=== PATIENT | female | born 1955 | race Caucasian/White ===

== ENCOUNTER 2019-09-24 11:22 | Emergency (ER) | payer OTHER ==
--- NOTE | 2019-09-24 11:36 | PDOC ---
*Physical Exam - Physical Exam 09/24/19 11:36 The patient was examined by [CAROL Burrows] under my direct supervision. I personally evaluated the patient. I concur with the above findings and the plan of care.
[2019-09-24 11:42] VITALS: BMI 22.4
[2019-09-24] MEDS ORDERED: ACETAMINOPHEN 325 MG TABLET (FP) PO ONE (11:55)
[2019-09-24] MEDS ORDERED: METHOCARBAMOL 500 MG TABLET PO ONE (11:56)
[2019-09-24 12:54] LABS: BASO % 0.3 % (0-2.0); EOS % 0.1 % (0-4.5); HEMOGLOBIN 12.6 GM/dL (10.7-15.3); LYMPH % 11.1 % (8-40); MCH 29.2 pg (25.7-33.7); MCHC 33.9 g/dl (32.0-36.0); MEAN PLT VOLUME 8.4 fl (7.5-11.1); NEUT % 82.5 % (42.8-82.8); PLATELET COUNT 403 K/MM3 (134-434); RBC 4.31 M/mm3 (3.60-5.2); WHITE BLOOD COUNT 12.9 K/mm3 (4.0-10.0)
[2019-09-24 13:06] LABS: INR 1.06 (0.83-1.09); PROTHROMBIN TIME (PATIENT) 12.5 SEC (9.7-13.0)
[2019-09-24 13:09] LABS: ACTIVATED PTT 38.1 SECONDS (25.2-36.5)
[2019-09-24 13:29] LABS: ALBUMIN 3.3 g/dl (3.4-5.0); BILIRUBIN,TOTAL 0.6 mg/dL (0.2-1); BLOOD UREA NITROGEN 22.9 mg/dL (7-18); CALCIUM 9.4 mg/dL (8.5-10.1); CREATININE 0.9 mg/dL (0.55-1.3); POTASSIUM 4.3 mmol/L (3.5-5.1)
--- NOTE | 2019-09-24 15:40 | PDOC ---
History of Present Illness - General Chief Complaint: Chest Pain Stated Complaint: CHEST PAIN,LT SIDE PAIN Time Seen by Provider: 09/24/19 11:29 History Source: Patient Exam Limitations: Language Barrier Past History - Past Medical History Allergies/Adverse Reactions: Allergies Allergy/AdvReac Type Severity Reaction Status Date / Time No Known Allergies Allergy Verified 09/24/19 12:22 Home Medications: Ambulatory Orders Aspirin [ASA -] 81 mg PO DAILY 09/24/19 Atorvastatin Ca [Lipitor] 40 mg PO HS 09/24/19 Metformin HCl [Glucophage] 1,000 mg PO BID 09/24/19 Nifedipine 60 mg PO DAILY 09/24/19 Omeprazole 40 mg PO DAILY 09/24/19 Sitagliptin Phosphate [Januvia] 100 mg PO DAILY 09/24/19 COPD: No Diabetes: Yes GI Disorders: Yes (gastritis) HTN: Yes - Psycho Social/Smoking Cessation Hx Smoking History: Never smoked *Physical Exam - Vital Signs Last Vital Signs Temp Pulse Resp BP Pulse Ox 98.2 F 111 H 19 150/86 100 09/24/19 11:25 09/24/19 11:25 09/24/19 11:25 09/24/19 11:25 09/24/19 11:25 - Physical Exam General Appearance: No: Apparent Distress HEENT: positive: EOMI, BARBARA Neck: positive: Other (pain with movement of neck, +R upper traps tenderness, no midline cspine tenderness). negative: Tender midline Respiratory/Chest: positive: Chest Tender (mild along L chest wall), Lungs Clear , Normal Breath Sounds. negative: Respiratory Distress Cardiovascular: positive: Regular Rhythm, Regular Rate, S1, S2. negative: Murmur Gastrointestinal/Abdominal: positive: Normal Bowel Sounds, Soft. negative: Tender, Distended, Guarding, Rebound Extremity: positive: Other (+pain with flexing L knee, no pedal edema, no calf tenderness, normal color of BLE, 2+ pulses of BLE) Integumentary: positive: Normal Color. negative: Swelling, Ecchymosis, Bruising Neurologic: positive: Alert, Normal Mood/Affect, Motor Strength 5/5 (of BUE; strength of LLE limited due to pain) ED Treatment Course - LABORATORY CBC & Chemistry Diagram: 09/24/19 12:05 09/24/19 12:05 - ADDITIONAL ORDERS Additional order review: Laboratory Results 09/24/19 09/24/19 09/24/19 12:05 12:05 12:05 PT with INR 12.50 INR 1.06 PTT (Actin FS) 38.1 H Sodium 135 L Potassium 4.3 Chloride 100 Carbon Dioxide 25 Anion Gap 10 BUN 22.9 H Creatinine 0.9 Est GFR (CKD-EPI)AfAm 77.77 Est GFR (CKD-EPI)NonAf 67.10 Random Glucose 130 H Calcium 9.4 Total Bilirubin 0.6 AST 10 L ALT 13 Alkaline Phosphatase 106 Troponin I < 0.02 Total Protein 8.0 Albumin 3.3 L 09/24/19 12:05 RBC 4.31 MCV 86.0 MCHC 33.9 RDW 14.0 MPV 8.4 Neutrophils % 82.5 Lymphocytes % 11.1 Monocytes % 6.0 Eosinophils % 0.1 Basophils % 0.3 - RADIOLOGY Radiology Studies Ordered: Category Date Time Status CHEST CTA [CT] Stat CT Scan 09/24/19 13:39 Ordered CHEST - PA [RAD] Stat Radiology 09/24/19 11:48 Completed KNEE 3 POS-LEFT [RAD] Stat Radiology 09/24/19 11:48 Completed - Medications Given in the ED: ED Medications Discontinued Medications Generic Name Dose Route Start Last Admin Trade Name Freq PRN Reason Stop Dose Admin Acetaminophen 975 mg 09/24/19 11:55 09/24/19 11:58 Tylenol - PO 09/24/19 11:56 975 mg ONCE ONE Administration Methocarbamol 1,000 mg 09/24/19 11:56 09/24/19 12:33 Robaxin - PO 09/24/19 11:57 1,000 mg ONCE ONE Administration Medical Decision Making - Medical Decision Making 64 y/o F hx of HTN, HLD, DM, gastritis presents with neck pain/stiffness x 4 days along with mild L sided CP. Also mentions having LLE pain from last night; pain is from the left knee down. Denies trauma. Saw PCP 2 days ago and was prescribed Flexeril but states it has not helped much. Surgical hx: abdominoplasty, hysterectomy. Denies fever, sob, abd pain, n/v, numbness/ tingling. EKG: Sinus tachycardia at 110 bpm CXR negative L knee xray - arthritic changes noted Patient was given Tylenol and Robaxin and felt slight improvement in pain Labs reviewed - trop negative Patient sent for CTA chest to r/o PE given tachycardia 09/24/19 15:30 Pending CTA results Signed out to TIN ROOFER abel bennett 09/24/19 16:09 Discharge - Discharge Information Problems reviewed: Yes Clinical Impression/Diagnosis: Neck pain, Arthritis of left knee Chest pain Qualifiers: Chest pain type: unspecified Qualified Code(s): R07.9 - Chest pain, unspecified - Follow up/Referral - Patient Discharge Instructions - Post Discharge Activity
--- NOTE | 2019-09-24 15:41 | EKG ---
Test Reason : Blood Pressure : / mmHG Vent. Rate : 110 BPM Atrial Rate : 110 BPM P-R Int : 156 ms QRS Dur : 078 ms QT Int : 328 ms P-R-T Axes : 032 019 016 degrees QTc Int : 443 ms SINUS TACHYCARDIA OTHERWISE NORMAL ECG NO PREVIOUS ECGS AVAILABLE Confirmed by MARCO LI, MATT ([id number]) on 09/24/2019 3:41:17 PM Referred By: Confirmed By:MATT LARA MD
--- NOTE | 2019-09-24 17:36 | PDOC ---
*Physical Exam - Vital Signs Last Vital Signs Temp Pulse Resp BP Pulse Ox 98.2 F 111 H 19 150/86 100 09/24/19 11:25 09/24/19 11:25 09/24/19 11:25 09/24/19 11:25 09/24/19 11:25 - Physical Exam General Appearance: Yes: Appropriately Dressed. No: Apparent Distress Neck: positive: Trachea midline Respiratory/Chest: positive: Lungs Clear, Normal Breath Sounds Cardiovascular: positive: Regular Rhythm, Regular Rate. negative: Murmur Extremity: positive: Normal Capillary Refill, Normal Inspection, Normal Range of Motion Integumentary: positive: Normal Color, Dry, Warm Neurologic: positive: travel money advisor II-XII NML intact, Fully Oriented, Alert, Normal Mood/ Affect, Normal Response, Motor Strength 02/23 ED Treatment Course - LABORATORY CBC & Chemistry Diagram: 09/24/19 12:05 09/24/19 12:05 - ADDITIONAL ORDERS Additional order review: Laboratory Results 09/24/19 09/24/19 09/24/19 12:05 12:05 12:05 PT with INR 12.50 INR 1.06 PTT (Actin FS) 38.1 H Sodium 135 L Potassium 4.3 Chloride 100 Carbon Dioxide 25 Anion Gap 10 BUN 22.9 H Creatinine 0.9 Est GFR (CKD-EPI)AfAm 77.77 Est GFR (CKD-EPI)NonAf 67.10 Random Glucose 130 H Calcium 9.4 Total Bilirubin 0.6 AST 10 L ALT 13 Alkaline Phosphatase 106 Troponin I < 0.02 Total Protein 8.0 Albumin 3.3 L 09/24/19 12:05 RBC 4.31 MCV 86.0 MCHC 33.9 RDW 14.0 MPV 8.4 Neutrophils % 82.5 Lymphocytes % 11.1 Monocytes % 6.0 Eosinophils % 0.1 Basophils % 0.3 - Medications Given in the ED: ED Medications Discontinued Medications Generic Name Dose Route Start Last Admin Trade Name Freq PRN Reason Stop Dose Admin Acetaminophen 975 mg 09/24/19 11:55 09/24/19 11:58 Tylenol - PO 09/24/19 11:56 975 mg ONCE ONE Administration Methocarbamol 1,000 mg 09/24/19 11:56 09/24/19 12:33 Robaxin - PO 09/24/19 11:57 1,000 mg ONCE ONE Administration ED Progress Note - Progress Note Progress Note: 09/24/19 17:37 Received signout from CAROL Burrows. Briefly this is a 64-year-old woman with history of hypertension, hyperlipidemia , diabetes, gastritis with multiple medical complaints today including right neck stiffness and left-sided chest pain for 4 days, left leg pain from the knee down. Patient was seen and evaluated for his symptoms 2 days ago with her primary doctor and was prescribed Flexeril which had minimal relief of the pain. Patient noted to be tachycardic to 110 bpm upon arrival X-ray of the left knee showed arthritic changes Chest x-ray was unremarkable Laboratory testing notable for slight leukocytosis at 12.9 and a mildly elevated BUN of 22.9. Initial troponin is less than 0.02 Patient is pending CTA of the chest to rule out pulmonary embolism. Medical Decision Making - Medical Decision Making 09/24/19 17:53 CT of the chest as read by Dr. Rodrigues: There is no evidence of a pulmonary embolus within the main pulmonary artery and its proximal branches bilaterally. No enlarged mediastinal hilar lymph nodes are identified. No acute lung disease is present. 1.5 cm left adrenal nodule that statistically may represent an adrenal adenoma. 09/24/19 18:13 Results of the CAT scan have been discussed with the patient's daughter per the patient request. Product Test Specialist phone used to minimize patient misunderstanding. Patient is aware of the left adrenal nodule and understands that follow-up as needed for reevaluation and to determine stability of nodule. Patient's daughter is verbalized understanding and has discussed with the patient with me at the bedside also connected with the mainframe systems administrator. Patient currently feels better and is requesting to go home. I will discharge the patient home to follow-up with her regular doctor. Discharge - Discharge Information Problems reviewed: Yes Clinical Impression/Diagnosis: Neck pain, Arthritis of left knee Chest pain Qualifiers: Chest pain type: unspecified Qualified Code(s): R07.9 - Chest pain, unspecified Condition: Fair Disposition: HOME - Admission No - Follow up/Referral - Patient Discharge Instructions Additional Instructions: Continue taking previously prescribed medication for your pain. Your CAT scan showed no blood clot in your lungs but did show a 1.5 cm nodule in the left adrenal gland. All this may be nothing this could be anything worse up to and including cancer. It is important that you follow-up with your regular doctor for continued evaluation. Return to the emergency department for any new or worsening symptoms. Thank you very much for choosing us to provide your emergent health care needs. Contine tomando medicamentos recetados previamente para quinn dolor. Quinn TAC no mostr cogulos de parker en los pulmones, tahira s mostr un ndulo de 1,5 cm en la glndula suprarrenal izquierda. Todo esto puede no ser nada, esto podra ser algo peor e incluso el cncer. Es importante que realice un seguimiento con quinn mdico habitual para josué evaluacin continua. Regrese al departamento de emergencias por cualquier sntoma nuevo o que empeore. Muchas saji por elegirnos para satisfacer jose luis necesidades de atencin mdica de emergencia. - Post Discharge Activity
[2019-09-24 17:48] VITALS: BP 138/76; PULSE 96; TEMP 98.5
== END 2019-09-24 18:54 | disposition home or self-care (01) ==
LOC: JER 11:22
DX: R07.9 Chest pain, unspecified (principal); E11.9 Type 2 diabetes mellitus without complications; E78.5 Hyperlipidemia, unspecified; I10 Essential (primary) hypertension
CPT/HCPCS: 36415; 71045-TC-FY; 71275-TC; 73562-TC-LT-FY; 80053; 84484; 85025; 85610; 85730; 93005; 93010; 99284-25; Q9967